=== PATIENT | male | born 1960 | race Caucasian/White ===

== ENCOUNTER 2017-04-29 13:59 | Emergency (ER) | payer BC ==
[2017-04-29 15:28] VITALS: BP 151/63
--- NOTE | 2017-04-29 16:10 | UC ---
FLU HPI - HPI Summary HPI Summary: 56 y/o male with PMH for elevated chol reports with ~ 24 hours of flu like symptoms- body aches all over, fever, chills, sweating, cough- dry, congestion nasal. no abdominal pain, no bowel complaints. no recent illness. son at home with same thing. no neck pain, slight headache. BP elevated, discussed with patient to follow up with PCP - History of Current Complaint Chief Complaint: UCGeneralIllness Stated Complaint: FLU SYMPTOMS Time Seen by Provider: 04/29/17 16:09 Hx Obtained From: Patient Onset/Duration: Sudden Onset, Lasting Hours Severity Currently: Mild Severity Initially: Moderate Pain Intensity: 3 Pain Scale Used: 0-10 Numeric - Allergy/Home Medications Allergies/Adverse Reactions: Allergies Allergy/AdvReac Type Severity Reaction Status Date / Time No Known Allergies Allergy Verified 04/29/15 09:37 Home Medications: Home Medications Rosuvastatin (NF) [Crestor (NF)] 10 mg PO DAILY 04/29/17 [History Confirmed 07/11] PMH/Surg Hx/FS Hx/Imm Hx Previously Healthy: Yes - elevated chol - Surgical History Surgical History: Yes Surgery Procedure, Year, and Place: neck surgery - Family History Known Family History: Positive: Cardiac Disease - Social History Alcohol Use: Rare Alcohol Amount: 2-3 TIMES PER YEAR Substance Use Type: None Smoking Status (MU): Never Smoked Tobacco - Immunization History Most Recent Influenza Vaccination: NONE Most Recent Tetanus Shot: UNKNOWN Most Recent Pneumonia Vaccination: NONE Review of Systems Constitutional: Fever, Chills, Fatigue ENT: Nasal Discharge, Sinus Congestion, Sinus Pain/Tenderness Respiratory: Cough Cardiovascular: Negative Gastrointestinal: Negative Musculoskeletal: Myalgia Neurological: Headache - mild Is Patient Immunocompromised?: No All Other Systems Reviewed And Are Negative: Yes Physical Exam Triage Information Reviewed: Yes Appearance: No Pain Distress, Ill-Appearing Vital Signs: Initial Vital Signs Temp 100.1 F 04/29/17 15:18 Pulse 87 04/29/17 15:18 Resp 18 04/29/17 15:18 BP 151/63 04/29/17 15:18 Pulse Ox 99 04/29/17 15:18 Vital Signs Reviewed: Yes ENT: Positive: Pharyngeal erythema - minimal, Nasal congestion, TMs normal - b/l , Sinus tenderness. Negative: Tonsillar swelling, Tonsillar exudate, Uvula midline Neck: Positive: Supple, Nontender, No Lymphadenopathy Respiratory: Positive: Chest non-tender, Lungs clear, Normal breath sounds, No respiratory distress, No accessory muscle use. Negative: Respiratory distress, Decreased breath sounds, Rhonchi, Stridor, Wheezing, Expiration Cardiovascular: Positive: RRR, No Murmur, Pulses Normal Abdomen Description: Positive: Nontender, No Organomegaly, Soft, Bruit. Negative: CVA Tenderness (R), CVA Tenderness (L) Psychological Exam: Normal Skin Exam: Normal Flu Course/Dx - Course Course Of Treatment: rapid flu- + B, tamiflu given - Differential Dx/Diagnosis Differential Diagnosis/HQI/PQRI: Bronchitis, Broncholiolitis, Influenza Provider Diagnoses: influenza B Discharge - Discharge Plan Condition: Good Disposition: HOME Prescriptions: Oseltamivir CAP* [Tamiflu CAP*] 75 mg PO BID #10 cap Patient Education Materials: Influenza (DC) Forms: *Work Release Referrals: George Valentino MD [Primary Care Provider] - Additional Instructions: - Increase fluid intake - Tamiflu to decrease symptoms - MOtrin/ tylenol for pain, fever, chills. - GO to er with increasing symptoms, headache, neck pain - avoid contact with other for 48 hours
[2017-04-29] MEDS ORDERED: Oseltamivir CAP* 75 MG CAP PO SCH (21:00)
== END 2017-04-29 16:50 | disposition home or self-care (01) ==
LOC: UCEAST 13:59
DX: J11.1 Influenza due to unidentified influenza virus with other respiratory manifestations (principal); E78.00 Pure hypercholesterolemia, unspecified
CPT/HCPCS: 87502; 99212; G0463

== ENCOUNTER 2018-08-19 07:43 | Emergency (ER) | payer BC ==
[2018-08-19 08:06] VITALS: BP 144/80
--- NOTE | 2018-08-19 08:20 | UC ---
Hand/Wrist HPI - HPI Summary HPI Summary: Pt presents with pain and swelling at lateral nailbed of right middle finger. Pt states progressive x 5 days. TTP no trauma. No h/o similar. no paresthsia Pt RHD. Pt unsure when last tdap Medicaiton reviewed this visit - History Of Current Complaint Chief Complaint: UCUpperExtremity Stated Complaint: RT MIDDLE FINGER Time Seen by Provider: 08/19/18 08:18 Hx Obtained From: Patient Onset/Duration: Gradual Onset Severity Initially: Mild Severity Currently: Mild Pain Intensity: 2 - Allergies/Home Medications Allergies/Adverse Reactions: Allergies Allergy/AdvReac Type Severity Reaction Status Date / Time No Known Allergies Allergy Verified 08/19/18 08:06 PMH/Surg Hx/FS Hx/Imm Hx Previously Healthy: Yes - Surgical History Surgical History: Yes Surgery Procedure, Year, and Place: neck surgery - Family History Known Family History: Positive: Cardiac Disease, Non-Contributory - Social History Occupation: Employed Full-time Lives: With Family Alcohol Use: Rare Alcohol Amount: 2-3 TIMES PER YEAR Substance Use Type: None Smoking Status (MU): Never Smoked Tobacco - Immunization History Most Recent Influenza Vaccination: NONE Most Recent Tetanus Shot: UNKNOWN Most Recent Pneumonia Vaccination: NONE Review of Systems All Other Systems Reviewed And Are Negative: Yes Skin: Positive: Other - right middle finger Musculoskeletal: Positive: Other: - right middle finger nailbed swelling and pain Is Patient Immunocompromised?: No Physical Exam - Summary Physical Exam Summary: Vital Signs Reviewed: Yes A+Ox3, no distress, Eyes: Conjunctiva Clear, TYSON. EOM intact and full ENT: Hearing grossly normal Neck: Positive: Supple Respiratory: Positive: No respiratory distress, No accessory muscle use Cardiovascular: 2+ radial/ulna CBT < 2 sec Musculoskeletal Exam: + flex/ext DIP, PIP right middle finger + mild TTP lateral, dorsum right nailbed Neurological: Positive: Alert, + sensation throughout tip Psychological: Positive: Normal Response To provider Skin: Positive: no rash, no ecchymosis, paronchyia lateral margin of right middlge finger Triage Information Reviewed: Yes Vital Signs: Initial Vital Signs Temp 98.5 F 08/19/18 08:02 Pulse 68 08/19/18 08:02 Resp 18 08/19/18 08:02 BP 144/80 08/19/18 08:02 Pulse Ox 98 08/19/18 08:02 Procedures - Procedure Summary Procedure Summary: + permission to treat time out with RN at bedside under usual sterile protocol: digital block: 0.25 bupivicaine total 3.5ml Once anethesize - used 11 blade to lift cuticle + purulent discharge, mod amt - irrigated milked wound marked improvement - continued erythema and mild edema covered with vaosline gauze, 4x4 and tube gauze pt tolerated well reviewed wound care with pt - Incision and Drainage Right Upper Distal Finger Dorsal Site: right middle finger paronychia Anesthesia: Digital Instrument(s): Scalpel Hand/Wrist Course/Dx - Course Course Of Treatment: Pt presents to urgent for evaluation of pain and swellig right middle finger nail bed Pt with paronychia right middle finger d/w pt plan of care will I+D Pt with purulent pocket but surround erythema/edema Will Rx abx soaks wound care Pt declined tdap today - will followup with as needed Slightly elevated BP - pt in discomfor - Differential Dx/Diagnosis Provider Diagnosis: Paronychia of finger Discharge - Sign-Out/Discharge Documenting (check all that apply): Patient Departure All imaging exams completed and their final reports reviewed: No Studies - Discharge Plan Condition: Stable Disposition: HOME Prescriptions: Cephalexin CAP* [Keflex 500 CAP*] 500 mg PO TID #21 cap Patient Education Materials: Paronychia (ED) Referrals: George Valentino MD [Primary Care Provider] - Additional Instructions: - soak finger in warm water or warm epsom salt soak for 10 minutes, 3-4 times a day for 3 days - After soaking - pat dry, cover with antibiotic ointment and bandage - Alternate ibuprofen (Advil, Motrin) 600mg and tylenol every 3hours as needed for pain - Take antibiotics as prescribed until gone - Contact your doctor or return here with any questions or concerns - Billing Disposition and Condition Condition: STABLE Disposition: Home
[2018-08-19] MEDS ORDERED: Bupivacaine 0.25% SDV PF* 10 ML VIAL INJ ONE (08:25)
[2018-08-19] MEDS ORDERED: Ibuprofen TAB* 600 MG PO ONE (08:59)
== END 2018-08-19 09:10 | disposition home or self-care (01) ==
LOC: UCEAST 07:43
DX: L03.012 Cellulitis of left finger (principal)
CPT/HCPCS: 10060; 87070; 87077; 87186; 87205; 87640; 87641; 99212; A9270-GY; G0463; J3490